=== PATIENT | female | born 1995 | race Caucasian/White ===

== ENCOUNTER 2024-03-14 10:00 | Outpatient (RCR) | payer BC, SELFPAY ==
--- NOTE | 2024-02-21 14:18 | URNOTE ---
Request received for authorization for?Iron Sucrose (Venofer) ([id number]). Prior authorization is not needed per [facility] policy Rep. Polina Maya. 02/18/24 at 1245pm, no PA if dose is under $1,500. Confirmed dose cost with pharmacist Blue.
[2024-02-29 13:16] VITALS: BP 120/76; PULSE 88; RESP 16; TEMP 36.8; O2SAT 98
[2024-02-29] MEDS: IRON SUCROSE COMPLEX 200 MG in 0.9 % SODIUM CHLORIDE 100 ml 100 ML 440 MG IVPB (13:46)
[2024-02-29] MEDS: 0.9 % SODIUM CHLORIDE 250 ml IV (14:00)
[2024-02-29 14:15] VITALS: BP 123/78; PULSE 80; RESP 16; TEMP 36.7; O2SAT 95
[2024-02-29 14:45] VITALS: BP 117/73; PULSE 86; RESP 16; TEMP 36.7; O2SAT 98
[2024-03-14 10:00] VITALS: BP 106/72; PULSE 69; RESP 18; TEMP 36.5; O2SAT 96
[2024-03-14] MEDS: 0.9 % SODIUM CHLORIDE 250 ml IV (10:42)
[2024-03-14] MEDS: IRON SUCROSE COMPLEX 200 MG in 0.9 % SODIUM CHLORIDE 100 ml 100 ML 440 MG IVPB (10:42)
[2024-03-14] MEDS: SODIUM CHLORIDE 0.9 % (FLUSH) 10 ML SYRINGE IVF (10:43)
[2024-03-14 11:30] VITALS: BP 121/79; PULSE 85; RESP 15; TEMP 36.1; O2SAT 98
== END 2024-08-27 23:59 | disposition home or self-care (01) ==
LOC: CCIC 10:00
PROVIDERS: Visit Provider Clinical Nurse Specialist
DX: E61.1 Iron deficiency (principal)
CPT/HCPCS: 96365; 96374; J1756; J7050